=== PATIENT | female | born 1970 | race Hispanic/Latino ===

== ENCOUNTER 2017-09-24 15:42 | Outpatient (CLI) | payer BC | END 2017-09-24 15:43 | disposition home or self-care (01) | LOC: BICMAMMO 15:42 | PROVIDERS: ATTEND Family Medicine | DX: Z12.31 Encounter for screening mammogram for malignant neoplasm of breast (principal) | CPT/HCPCS: 77063; 77067 ==

== ENCOUNTER 2018-02-17 11:36 | Emergency (ER) | payer BC ==
[2018-02-17 12:37] LABS: Bilirubin Small (Negative); Blood, Urine Large (Negative); Clarity CLOUDY (Clear); Glucose, Urine (Dipstick) Negative (Negative); Leukocyte Small (Negative); Nitrite Negative (Negative); Protein, Urine (Dipstick) 30 mg/dL (Neg-Trace); Specific Gravity, Urine 1.022 (1.002-1.036)
[2018-02-17 12:43] LABS: Bacteria/HPF None Seen HPF (None Seen); Hyaline Casts/LPF 0-3 HYALINE CAST LPF (0-3 Hyaline); RBC/HPF GREATER THAN 50-TNTC HPF (0-3); Squamous Epithelial 0-3 HPF (0-3)
[2018-02-17 12:46] LABS: #Basophils 0.1 thou/uL (0.0-0.2); #Lymphocytes 0.8 thou/uL (1.20-3.40); #Monocytes 0.6 thou/uL (0.11-0.59); #Neutrophils 12.3 thou/uL (1.40-6.50); %Basophils 0.5 % (0.0-1.0); %Lymphocytes 5.9 % (21.0-51.0); %Monocytes 4.1 % (0.0-10.0); %Neutrophils 89.5 % (42.0-75.0); Hemoglobin 13.6 g/dL (12.0-16.0); Mean Corpuscular HGB CONC 33.8 g/dL (32.0-36.0); Mean Corpuscular Hemoglobin 31.8 pg (27.0-31.0); Mean Platelet Volume 8.6 fL (7.4-10.4); Platelet Count 201 thou/uL (130-400); RBC Distribution Width 11.9 % (11.5-14.5); Red Blood Cell (RBC) Count 4.28 mill/uL (4.20-5.40); White Blood Cell (WBC) Count 13.7 thou/uL (4.8-10.8)
[2018-02-17] MEDS ORDERED: Ketorolac Tromethamine 30 MG/ML VIAL ONE (13:03)
[2018-02-17 13:43] LABS: BHCG - Serum Negative (NEGATIVE); Pregs Control Background? CLEAR/WHITE (CLR/WHITE); Pregs Control Bar Appear? YES (CONTROL BAR)
--- NOTE | 2018-02-17 15:33 | ULT ---
PELVIC ULTRASOUND: DATE: 02/17/2018. HISTORY: Left-sided pelvic pain with vaginal bleeding. FINDINGS: Multiple transabdominal and endovaginal sonographic images of the pelvis are obtained. There is slig ht heterogeneity of the uterus which measures 10 cm x 5.9 cm x 7.4 cm. There is a heterogeneous mass seen within the anterior aspect body of the uterus likely related to uterine fibroid. This measures 3.4 cm in greatest dimensions. The endometrial stripe measures 0.8 cm which would be within normal limits in a normal menstruating female patient but would be abnormal in a postmenopausal female patie nt. No fluid or fluid collection is seen in the endometrial canal. Nabothian cysts are visualized. The ovaries are visualized bilaterally and do demonstrate a normal sonographic appearance. The right ovary measures 3.2 cm x 1.6 cm x 1.5 cm. The left ovary measure s3.4 cm x 2.6 cm x 2.2 cm. Doppler evaluation of each ovary with spectral analysis and color flow evaluation demonstrates a sugg estion of arterial flow within each ovary. There is venous flow also seen within each ovary. No free fluid is seen in the cul-de-sac. IMPRESSION: 1. Endometrial stripe measures 0.8 cm in thickness. This would be within normal limits in a normal menstruating female patient but would be abnormal in a postmenopausal female patient. 2. Heterogeneous uterus with heterogeneous mass in the anterior body of the uterus likely attributab le to a uterine fibroid. 3. Normal-appearing bilateral ovaries. POS: [facility]
== END 2018-02-17 15:41 | disposition home or self-care (01) ==
LOC: ERS 11:36
DX: N93.9 Abnormal uterine and vaginal bleeding, unspecified (principal); N92.6 Irregular menstruation, unspecified; D25.9 Leiomyoma of uterus, unspecified
CPT/HCPCS: 36415; 76856; 81003; 81015; 84703; 85025; 86850; 86900; 86901; 96374; J1885

== ENCOUNTER 2018-12-10 08:09 | Outpatient (CLI) | payer BC ==
--- NOTE | 2018-12-10 08:39 | ULT ---
Exam: Bilateral renal ultrasound HISTORY: Asymptomatic microscopic hematuria. COMPARISON: None FINDINGS: Right kidney: Normal cortical echotexture. No hydronephrosis. Right kidney measurements: 12.1 x 6.0 x 6.3 cm. Left kidney: Normal cortical echotexture. No hydronephrosis Left kidney measurements 12.2 x 6.4 x 6.2 cm. Urinary bladder: Normal mucosa. IMPRESSION: No hydronephrosis.
== END 2018-12-10 08:10 | disposition home or self-care (01) ==
LOC: SCSULT 08:09
PROVIDERS: ATTEND Family Medicine
DX: R31.21 Asymptomatic microscopic hematuria (principal)
CPT/HCPCS: 76770

== ENCOUNTER 2020-01-21 12:17 | Outpatient (CLI) | payer BC ==
--- NOTE | 2020-01-21 12:59 | MMO ---
Bilateral MAMMO Bilat Screen [facility]. CLINICAL HISTORY: Patient is 49 years old and is seen for screening. The patient has no family history of breast cancer. The patient has no personal history of cancer. VIEWS: The views performed were: bilateral craniocaudal with tomosynthesis and bilateral mediolateral oblique with tomosynthesis. FILMS COMPARED: The present examination has been compared to prior imaging studies performed at [facility] on 05/02/2015, 09/20/2016, 09/24/2017 and 09/25/2018. This study has been interpreted with the assistance of computer-aided detection. MAMMOGRAM FINDINGS: There are scattered fibroglandular densities. There are no suspicious masses, suspicious calcifications, or new areas of architectural distortion. IMPRESSION: THERE IS NO MAMMOGRAPHIC EVIDENCE OF MALIGNANCY. A ROUTINE FOLLOW-UP MAMMOGRAM IN 1 YEAR IS RECOMMENDED. THE RESULTS OF THIS EXAM WERE SENT TO THE PATIENT. ACR BI-RADS Category 1 - Negative MAMMOGRAPHY NOTE: 1. A negative mammogram report should not delay a biopsy if a dominant of clinically suspicious mass is present. 2. Approximately 10% to 15% of breast cancers are not detected by mammography. 3. Adenosis and dense breasts may obscure an underlying neoplasm. Reported by: NATALIA GARRISON MD Electonically Signed: [id number]
== END 2020-01-21 12:18 | disposition home or self-care (01) ==
LOC: BICMAMMO 12:17
PROVIDERS: ATTEND Family Medicine
DX: Z12.31 Encounter for screening mammogram for malignant neoplasm of breast (principal)
CPT/HCPCS: 77063; 77067